=== PATIENT | female | born 1955 | race Caucasian/White ===

== ENCOUNTER 2018-10-01 03:45 | Inpatient (IN) | payer OTHER ==
--- NOTE | 2018-09-30 12:53 | LEVENE H&P ---
DATE OF ADMISSION: October 01, 2018 IDENTIFICATION/CHIEF COMPLAINT Debra is a 63-year old with a chief complaint of right knee pain. HISTORY OF PRESENT ILLNESS Patient has a longstanding history of right knee osteoarthritis progressively painful and debilitating and refractory to conservative care. Surgery is indicated to relieve symptoms after failure of nonoperative measures. PAST MEDICAL HISTORY Notable for remote history of a blood transfusion, generally excellent health. PAST SURGICAL HISTORY 1. . 2. Contralateral knee replacement. ALLERGIES No true drug allergies. MORPHINE does cause nausea and vomiting. CURRENT MEDICATIONS 1. Medroxyprogesterone 10 mg p.o. q. day. 2. Estradiol 0.5 mg p.o. q. day. 3. Atorvastatin 20 mg p.o. q. day. FAMILY HISTORY Non-contributory. SOCIAL HISTORY Negative for tobacco and alcohol use. REVIEW OF SYSTEMS Negative. PHYSICAL EXAMINATION GENERAL: This is a well-developed, well-nourished female who appears stated age. HEENT: Normocephalic, atraumatic. NECK: Supple. LUNGS: Clear. HEART: Regular. ABDOMEN: Soft. ORTHOPEDIC EXAMINATION The right knee is stiffened on range of motion. Effusion is present. Crepitus noted. Gross stability is good. Extensor function is intact. Calves are nontender. Neurovascular function is intact. Radiographs demonstrate end-stage DJD. ASSESSMENT Right knee degenerative joint disease, refractory to conservative care. PLAN Per patient request, we will proceed with total knee arthroplasty. The nature of the procedure, the risks, benefits, the anticipated rehabilitative course were reviewed. Risks include, but are not limited to, , major medical or anesthetic complication, infection, neurovascular injury, blood transfusion, stiffness, scarring, fracture, tendon rupture, instability, implant loosening, migration or failure, persistent or recurrent pain or symptoms, need for additional surgery and other unforeseen. She understands and wishes to proceed. A signed permit is placed in the chart. No guarantees are given or implied. ENRIQUE
[2018-09-30 14:47] LABS: INR 0.92
[2018-10-01] VITALS (12 sets, daily range): BP systolic 102–136; BP diastolic 58–85
[~2018-10-01] VITALS: Ht 170.2 cm; Wt 83.5 kg
[~2018-10-01 03:45] MED LIST: ATOR20TA65 PO; BISA-236 RC; CELE-1 PO; ESTR1PAT3 PO; LOR5/325 PO; MEDR10TA65 PO; MEDROXYPROGESTERONE PO; RIV10 PO; [UNRECOGNIZED DRUG - REMARK] PO
[2018-10-01] MEDS ORDERED: VANCOMYCIN 1 GM VIAL ONE ×2 (06:38→09:41)
[2018-10-01] MEDS ORDERED: ceFAZolin(*) 2GM/D5W 50ML 50 ML IVPB ONE (07:37)
[2018-10-01] MEDS ORDERED: DEXAMETHASONE SOD 4 MG/ML VIAL ONE (07:51)
[2018-10-01] MEDS ORDERED: fentaNYL CITR 100 MCG/2 ML AMP ONE ×2 (07:51→11:15)
[2018-10-01] MEDS ORDERED: PROPOFOL EMUL(*) 10MG/ML 20 ML 20 ML ONE (07:51)
[2018-10-01] MEDS ORDERED: LIDOCAINE MPF 1% 5 ML VIAL ONE (07:51)
[2018-10-01] MEDS ORDERED: ONDANSETRON 4 MG/2 ML VIAL ONE (07:51)
[2018-10-01] MEDS ORDERED: KETAMINE HCL 200 MG/20 ML MDV ONE (07:52)
[2018-10-01] MEDS ORDERED: ceFAZolin(*) 1 GM VIAL 1 GM in NS(*) 0.9% 100 ML ADDVANT BAG 100 ML IVPB ONE (08:45)
[2018-10-01] MEDS ORDERED: PREGABALIN 150 MG CAPSULE PO ONE (08:45)
[2018-10-01] MEDS ORDERED: ACETAMINOPHEN 500 MG TAB PO ONE (08:45)
[2018-10-01] MEDS ORDERED: NORMOSOL R SOLN(*) 1000 ML BAG 1,000 ML IV PRN ×2 (08:45→17:00)
[2018-10-01] MEDS ORDERED: ROPIVACAINE/EPI/CLONIDINE/KET 50 ML SYRINGE INJ ONE (08:45)
[2018-10-01] MEDS ORDERED: TRANEXAMIC AC 1000 MG/10ML SDV 1,000 MG in DEXTROSE 5% 50 ML BAG 50 ML IV ONE (08:45)
[2018-10-01] MEDS ORDERED: FAMOTIDINE 20 MG TAB PO ONE (08:45)
[2018-10-01] MEDS ORDERED: LIDOCAINE/SOD BICARB 8.4% SYR ID ONE (08:45)
[2018-10-01] MEDS ORDERED: CELECOXIB 200 MG CAP PO ONE (08:45)
[2018-10-01] MEDS ORDERED: MIDAZOLAM 2 MG/2 ML VIAL IVP PRN (08:45)
[2018-10-01] MEDS ORDERED: ePHEDrine 25 MG/5 ML DISP.SYR IVP ONE (10:09)
[2018-10-01] MEDS ORDERED: PROMETHAZINE 25 MG/ML 1 ML AMP ONE (12:32)
--- NOTE | 2018-10-01 12:52 | RADIOLOGY IMAGING REPORT ---
FACILITY: [facility] [place] PATIENT NAME: Debra Solis : 1955 MR: [id number] V: [id number] EXAM DATE: ORDERING PHYSICIAN: DEWEY ESPINOZA TECHNOLOGIST: Location: [facility] [place] Patient: Debra Solis : 1955 Visit/Account:[id number] Date of Sevice: 10/01/2018 Right knee Indication: TKA Comparison: None available Findings: Anatomic on status post right total knee arthroplasty. Components are well seated. Expected soft ti ssue changes. IMPRESSION: 1. Expected postoperative appearance right total knee arthroplasty. Report Dictated By: Scottie Sheets MD at 10/01/2018 12:47 PM Report E-Signed By: Scottie Sheets MD at 10/01/2018 12:48 PM WSN:[id number]
--- NOTE | 2018-10-01 13:29 | Hospitalist Consultation ---
History of Present Illness Requesting Physician Dr. Louise Reason for Consult Medical Management Chief Complaint s/p right knee replacement History of Present Illness She was admitted s/p right knee replacement. It is reported the surgery went well and without complication History Problems: (1) Hyperlipidemia Status: Chronic (2) Menopause Status: Chronic Home Meds Reported Medications Estradiol (ESTRADIOL 0.05 MG) 1 Each Patch.tdwk, 1 EACH PO DAY 1-25, PATCH.WK 09/25/18 Atorvastatin Calcium (ATORVASTATIN CALCIUM) 20 Mg Tablet, 1 TAB PO QDAY, TAB 09/25/18 Medroxyprogesterone Acetate (MEDROXYPROGESTERONE ACETATE) 10 Mg Tablet, 10 MG PO DAILY DAY 16-06/07/13 Discontinued Reported Medications Celecoxib (CELEBREX) 200 Mg Capsule, 200 MG PO BID, #60 CAPSULE TAKE 1 CAPSULE BY MOUTH TWICE DAILY 06/07/13 Bisacodyl (DULCOLAX) 10 Mg Supp.rect, 10 MG RC PRN, SUPP.RECT 06/07/13 Hydrocodone Bit/Acetaminophen (HYDROCODON-ACETAMINOPHEN 5-325) 1 Each Tablet, 1- 2 EACH PO Q4-6H PRN for PAIN, #40 06/07/13 Rivaroxaban (XARELTO 10 MG TAB (OR EQUIV)) 10 Mg Tablet, 10 MG PO QDAY 06/07/13 [Estropirate] No Conflict Check, 1 TAB PO DAILY 05/28/13 Allergies: Coded Allergies: No Known Drug Allergies (Unverified , 05/28/13) Patient History: FH: dementia MOTHER FH: prostate cancer FATHER, Hx Smoking: No Smoking Status: Never Smoker Caffeine Intake: Coffee Caffeine/Cups Per Day: 2 CCD Hx Alcohol Use: No Hx Substance Use Disorder: No Social Drug Use: Never History of IV Drug Use: No Review of Systems All Systems Reviewed/Normal: Yes, Except as Noted Exam Vital Signs Vital Signs Date Time Temp Pulse Resp B/P (MAP) Pulse Ox O2 Delivery O2 Flow Rate FiO2 10/01/18 13:13 97.6 71 16 131/73 (92) 99 Nasal Cannula 2.0 General Appearance: Alert, Awake, No Acute Distress, Afebrile Neuro: No Gross deficits Cardiovascular: Regular Rate and Rhythm Respiratory: No Respiratory Distress, Clear to Auscultation GI: Abd Soft and Non-Tender Psych: Alert & Oriented X3, Appropriate Mood & Affect Assessment and Plan Problems: (1) Status post right knee replacement Status: Acute Assessment & Plan: Followed by Dr. Louise. She will be placed on Aspirin for DVT prophylaxis. (2) Hyperlipidemia Status: Chronic Assessment & Plan: She is on chronic treatment with Atorvastatin. (3) Menopause Status: Chronic Assessment & Plan: She is on chronic treatment with Estradiol and Progesterone. Recommend she hold these medications as they could increase risk for blood clot. Venous Thromboembolism Antithrombotics Is Pt On Any Antithrombotics?: No RICHARD DEJESUS Oct 01, 2018 13:29
--- NOTE | 2018-10-01 13:31 | OPERATIVE REPORT 1 ---
EVENT DATE: October 01, 2018 SURGEON: Wesly Louise MD ANESTHESIOLOGIST: Mir Phna MD ANESTHESIA: General plus spinal. 3D SPECIALIST: Mitesh Shaw PA-C PREOPERATIVE DIAGNOSIS Right knee degenerative joint disease. POSTOPERATIVE DIAGNOSIS Right knee degenerative joint disease. PROCEDURE PERFORMED Right total knee arthroplasty. ESTIMATED BLOOD LOSS Minimal. DRAINS None. SPECIMENS None. COMPLICATIONS None apparent. TOURNIQUET TIME 41 minutes. IMPLANTS USED Slade Triathlon knee system with 5 right PS femur, 4 standard tibial baseplate, 33 mm universal symmetric all polyethylene patella button and a 13 mm PS tibial tray liner, polyethylene X3. INDICATIONS Debra is a 63-year-old woman with intractable pain and disability related to endstage knee arthritis. Surgery is indicated to relieve symptoms after failure of nonoperative measures. DESCRIPTION OF PROCEDURE The patient was taken to the operating room and placed supine on the operating table. Spinal block was placed by the anesthesiologist. General anesthesia was induced. Standard antibiotics and TXA were administered IV. The right lower extremity was prepped and draped in the usual sterile fashion for orthopedic surgery. The limb was exsanguinated with an Esmarch bandage. The tourniquet was inflated to 250 mmHg. A midline longitudinal incision was made and carried down through the skin and subcutaneous tissue to the extensor mechanism. A full-thickness flap was developed far enough medially to allow medial parapatellar arthrotomy to be performed. The patella was everted. The knee was brought into flexion position. the fat pad, anterior horns of the menisci and cruciate ligaments were debrided. Subperiosteal release was initiated in a titrated fashion along the medial proximal tibia to balance the knee. A step drill was used to enter the distal femur. A 10-inch long alignment guide was used to engage the isthmus. Cut was set for 6 degrees of valgus relative to the anatomic axis. The block is pinned and then a distal femoral cut was was made with an oscillating saw. The AP sizing guide was applied to the distal femoral cut and positioned for 3 degrees of external rotation over the posterior condyles. A size 5 was optimal without risk of notching. The four-in-one cutting block was applied. Anterior, posterior, posterior chamfer and anterior chamfer cuts were made respectively. A PS block was applied and centered mediolateral and the bone was removed from the box. The trial femur has nice [id number] fit. Attention was turned to the tibial preparation. The extramedullary guide was applied and positioned for varus, valgus, posterior slope and rotation. This was set to take 9 mm from the relatively intact lateral tibial plateau. It was dropped down another 1 to 2 millimeters to ensure an adequate cut. The block was pinned, extramedullary alignment check was made. The cut is made with an oscillating saw. After osteophyte removal and removal of the posterior condylar bone, the gaps were balanced and symmetric with no additional release required. The 4 tibial baseplate provides optimum bony coverage without soft tissue overhang. This was inserted along with a trial liner and trial femur. The knee was brought into extension. The patella was taken from the starting thickness of 22 to a residual of 14 with a clamp and oscillating saw. A 33 provides optimal bony coverage without soft tissue overhang. The lug holes were drilled. The patella tracts nicely with a no- touch technique. Final tibial preparation consists of ensuring appropriate rotational and translational position of the component. The box was reamed and the fin was punched. Surfaces were copiously lavaged. A mix of polymethylmethacrylate was made and the components were cemented in a single stage. After the cement was fully polymerized, the tourniquet was deflated and hemostasis was assured. The wounds were copiously lavaged. The 13 PS tibial tray trial fills up the gap ideally allowing the knee to drop to full extension without hyperextension, providing optimal soft tissue tension and stability. The tray was lavaged, dried and cleared of all debris and the actual liner was locked into the baseplate. The joint was reduced and the arthrotomy was closed in flexion with #2 Ethibond, subcutaneous tissue with 3-0 Vicryl and the skin with a ZipLine closure. Xeroform was applied, 4 x 4 dry sterile dressing and compression wrap. The patient was awakened from the anesthesia and taken to the recovery room in stable condition, having tolerated the procedure well. Plan is for standard TKA rehab protocol. [facility]
--- NOTE | 2018-10-01 15:59 | NUR ---
Physical Therapy Impression PT eval complete. Pt able to perform bed mobility with SBA, stand pivot transfer to the commode using RW and CGA. CPM fitted and running 0-40 deg. Recommend OP PT at [place]. Physical Therapy Goals 1. Min A bed mobility. 2. SBA transfers. 3. SBA gait x 150' with appropriate assistive device. 4. Ascend/descend 3 stairs SBA. 5. Independent use of CPM. Patient's Goals
[2018-10-01] MEDS ORDERED: BISACODYL 10 MG SUPP PR PRN (17:00)
[2018-10-01] MEDS ORDERED: DIAZEPAM 5 MG TAB PO PRN (17:00)
[2018-10-01] MEDS ORDERED: ZOLPIDEM TARTRATE 5 MG TAB PO PRN (17:00)
[2018-10-01] MEDS ORDERED: diphenhydrAMINE 25 MG CAP PO PRN (17:00)
[2018-10-01] MEDS ORDERED: ACETAMINOPHEN 325 MG TAB PO PRN (17:00)
[2018-10-01] MEDS ORDERED: PROMETHAZINE 25 MG/ML 1 ML AMP IVP PRN (17:00)
[2018-10-01] MEDS ORDERED: diphenhydrAMINE 50 MG/ML VIAL IVP PRN (17:00)
[2018-10-01] MEDS ORDERED: BENZOCAINE/MENTHOL 1 EACH LOZG PO PRN (17:00)
[2018-10-01] MEDS ORDERED: MAGNESIUM HYDROXIDE* 30ML UDCP PO PRN (17:00)
[2018-10-01] MEDS ORDERED: FLUSH 10 ML SYR IVP PRN (17:00)
[2018-10-01] MEDS: CELECOXIB 200 MG CAP PO SCH (17:10)
[2018-10-01] MEDS: APAP/HYDROCODONE 325/7.5 TAB PO PRN (17:11)
[2018-10-01] MEDS: ceFAZolin(*) 1 GM VIAL 1 GM in NS(*) 0.9% 100 ML ADDVANT BAG 100 ML IVPB SCH (17:38)
[2018-10-02] MEDS: APAP/HYDROCODONE 325/7.5 TAB PO PRN ×4 (01:17→19:34)
[2018-10-02] MEDS: ceFAZolin(*) 1 GM VIAL 1 GM in NS(*) 0.9% 100 ML ADDVANT BAG 100 ML IVPB SCH ×2 (01:17→10:30)
[2018-10-02 07:09] VITALS: BP 115/57
[2018-10-02] MEDS: ASPIRIN 325 MG TAB PO SCH (08:47)
[2018-10-02] MEDS: CELECOXIB 200 MG CAP PO SCH ×2 (08:48→17:14)
[2018-10-02] MEDS: ATORVASTATIN 10 MG TAB PO SCH (08:48)
--- NOTE | 2018-10-02 10:03 | Hospitalist Progress Note ---
Subjective Progress Notes Subjective She was admitted s/p knee replacement. She had no acute events overnight. She has no complaints. Patient Complains of: Cardiovascular: No: Chest Pain Respiratory: No: Shortness of Breath Physical Exam Vital Signs Date Time Temp Pulse Resp B/P (MAP) Pulse Ox O2 Delivery O2 Flow Rate FiO2 10/02/18 07:09 97.9 76 115/57 (76) 95 Room Air 10/01/18 20:08 18 10/01/18 18:00 1.5 Intake and Output 10/02/18 07:00 Intake Total 2250 ml Balance 2250 ml Intake Oral 400 ml IV Total 1850 ml # Voids 4 General Appearance: Alert, Awake, No Acute Distress, Afebrile Neuro: No Gross deficits Cardiovascular: Regular Rate and Rhythm Respiratory: No Respiratory Distress, Clear to Auscultation GI: Soft and Non-Tender Psych: Alert & Oriented X3, Appropriate Mood & Affect Assessment and Plan Problems: (1) Status post right knee replacement Status: Acute Assessment & Plan: Followed by Dr. Louise. She will be placed on Aspirin for DVT prophylaxis. (2) Hyperlipidemia Status: Chronic Assessment & Plan: She is on chronic treatment with Atorvastatin. (3) Menopause Status: Chronic Assessment & Plan: She is on chronic treatment with Estradiol and Progesterone. Recommend she hold these medications as they could increase risk for blood clot. Exam Sepsis Risk: No Definite Risk RICHARD DEJESUS Oct 02, 2018 10:02
[2018-10-02 11:10] VITALS: BP 116/64
[2018-10-02 15:10] VITALS: BP 136/75
--- NOTE | 2018-10-02 17:02 | NUR ---
Physical Therapy Impression Pt progressing well and tolerated treatment on room air with SO2 >90%. Recommend OP PT at [place]. Physical Therapy Goals 1. Min A bed mobility. 2. SBA transfers. 3. SBA gait x 150' with appropriate assistive device. 4. Ascend/descend 3 stairs SBA. 5. Independent use of CPM. Patient's Goals
--- NOTE | 2018-10-02 17:26 | NUR ---
Physical Therapy Impression Pt able to perform bed mobility, transfers, and gait x 500' with RW at Mod I level. Pt CGA to ascend 1 step with appropriate sequence. Pt safe for DC when medically appropriate. Physical Therapy Goals 1. Min A bed mobility. 2. SBA transfers. 3. SBA gait x 150' with appropriate assistive device. 4. Ascend/descend 3 stairs SBA. 5. Independent use of CPM. Patient's Goals
[2018-10-02 22:29] VITALS: BP 132/73
[2018-10-03] MEDS: APAP/HYDROCODONE 325/7.5 TAB PO PRN ×3 (01:45→13:16)
[2018-10-03 03:25] VITALS: BP 117/71
[2018-10-03 07:14] VITALS: BP 121/86
--- NOTE | 2018-10-03 08:29 | NUR ---
Physical Therapy Impression Pt demonstrates independence and safety with all functional mobility including stairs. Pt is safe for DC when medically appropriate. Physical Therapy Goals 1. Min A bed mobility. 2. SBA transfers. 3. SBA gait x 150' with appropriate assistive device. 4. Ascend/descend 3 stairs SBA. 5. Independent use of CPM. Patient's Goals
[2018-10-03] MEDS: CELECOXIB 200 MG CAP PO SCH ×2 (08:36→17:30)
[2018-10-03] MEDS: ATORVASTATIN 10 MG TAB PO SCH ×2 (08:36→08:39)
[2018-10-03] MEDS: ASPIRIN 325 MG TAB PO SCH (08:36)
[2018-10-03] MEDS ORDERED: ASPI-757 PO (09:50)
--- NOTE | 2018-10-03 09:53 | Hospitalist Progress Note ---
Subjective Progress Notes Subjective She was admitted s/p knee replacement. She has no complaints this morning. She had no acute events overnight. Patient Complains of: Cardiovascular: No: Chest Pain Respiratory: No: Shortness of Breath Physical Exam Vital Signs Date Time Temp Pulse Resp B/P (MAP) Pulse Ox O2 Delivery O2 Flow Rate FiO2 10/03/18 07:14 98.2 76 18 121/86 (98) 92 Room Air 10/01/18 18:00 1.5 Intake and Output 10/03/18 06:59 Intake Total 925 ml Balance 925 ml Intake Oral 820 ml IV Total 105 ml # Voids 3 General Appearance: Alert, Awake, No Acute Distress, Afebrile Neuro: No Gross deficits Cardiovascular: Regular Rate and Rhythm Respiratory: No Respiratory Distress, Clear to Auscultation GI: Soft and Non-Tender Psych: Alert & Oriented X3, Appropriate Mood & Affect Assessment and Plan Problems: (1) Status post right knee replacement Status: Acute Assessment & Plan: Followed by Dr. Louise. She will be placed on Aspirin for DVT prophylaxis. (2) Hyperlipidemia Status: Chronic Assessment & Plan: She is on chronic treatment with Atorvastatin. (3) Menopause Status: Chronic Assessment & Plan: She is on chronic treatment with Estradiol and Progesterone. Recommend she hold these medications for two weeks as they could increase risk for blood clot. Exam Sepsis Risk: No Definite Risk RICHARD DEJESUSP Oct 03, 2018 09:53
[2018-10-03 11:19] VITALS: BP 137/73
[2018-10-03 15:38] VITALS: BP 120/78
[2018-10-03] MEDS ORDERED: HYDR-654 PO (18:26)
== END 2018-10-03 18:40 | disposition home or self-care (01) | DRG 470 ==
LOC: OR 03:45 → MED 13:10
PROVIDERS: ADMIT Orthopaedic Surgery; ATTEND Orthopaedic Surgery
PROC: 0SRC0J9 Replacement of Right Knee Joint with Synthetic Substitute, Cemented, Open Approach (ICD-10-PCS; principal; 2018-10-01 09:55)
DX: M17.11 Unilateral primary osteoarthritis, right knee (principal); Z96.652 Presence of left artificial knee joint; E78.5 Hyperlipidemia, unspecified; Z88.5 Allergy status to narcotic agent; Z78.0 Asymptomatic menopausal state
CPT/HCPCS: 36415; 85610; 86850; 86900; 86901; 97161; C1713; C1776; J0690; J1100; J2001; J2250; J2405; J2550; J2704; J3010; J3370; J3490; J7050; J7060